=== PATIENT | female | born 1965 | race Caucasian/White ===

== ENCOUNTER 2021-07-11 13:26 | Emergency (ER) | payer OTHER ==
[2021-07-11] MEDS ORDERED: MOTRIN600 MG PO (18:03)
[2021-07-11] MEDS ORDERED: FLEXERIL5 MG PO (18:03)
== END 2021-07-11 18:40 | disposition home or self-care (01) ==
LOC: FER 13:26
DX: S16.1XXA Strain of muscle, fascia and tendon at neck level, initial encounter (principal); S29.012A Strain of muscle and tendon of back wall of thorax, initial encounter; S86.912A Strain of unspecified muscle(s) and tendon(s) at lower leg level, left leg, initial encounter; Z88.8 Allergy status to other drugs, medicaments and biological substances; V83.5XXA Driver of special industrial vehicle injured in nontraffic accident, initial encounter
CPT/HCPCS: 73560